=== PATIENT | male | born 1995 | race Caucasian/White ===

== ENCOUNTER 2016-11-16 11:46 | Day surgery (SDC) | payer BC ==
[2016-11-07 15:48] VITALS: BMI 23.0
[~2016-11-16] VITALS: Ht 180.3 cm; Wt 75.0 kg
[~2016-11-16 11:46] MED LIST: AMPH20TA2 PO; CEFAZOLIN 2000 MG/60 ML D5W IV SCH; FENTANYL CITRATE INJ 50 MCG/1 ML 2 ML VIAL ONE; IBUP-103 PO; LACTATED RINGER'S 1000ML 1,000 ML IV SCH; MIDAZOLAM HCL 1 MG/ML 2ML VIAL ONE
[2016-11-16 12:07] VITALS: BP 125/57; PULSE 57; TEMP 36.7; BMI 23.0
[2016-11-16 12:14] VITALS: Ht 180.3 cm; Wt 75.0 kg
--- NOTE | 2016-11-16 12:44 | History & Physical Bridge Note ---
H&P Re-Evaluation Bridge Note: I have examined the patient, reviewed the History & Physical and in the interval since the performance of the History & Physical I have noted the following changes of clinical significance: No changes noted
[2016-11-16] MEDS ORDERED: HYDR-5688 PO (12:45)
[2016-11-16] MEDS ORDERED: ONDANSETRON INJ 2 MG/ML 2 ML VIAL ONE (13:24)
[2016-11-16] MEDS ORDERED: PROPOFOL IV EMULSION 10 MG/ML 20 ML VIAL IV ONE (13:24)
[2016-11-16] MEDS ORDERED: LIDOCAINE HCL 2% 2 ML VIAL (20MG/ML) ONE (13:24)
[2016-11-16] MEDS ORDERED: KETOROLAC TROMETHAMINE 30 MG/ML VIAL ONE (13:24)
[2016-11-16] MEDS ORDERED: DEXAMETHASONE SOD INJ 4 MG/ML VIAL ONE (13:24)
[2016-11-16] MEDS ORDERED: FENTANYL CITRATE INJ 50 MCG/1 ML 2 ML VIAL ONE (13:26)
[2016-11-16] MEDS ORDERED: NEOSTIGMINE METHYLSULFATE 5 MG/5 ML SYR ONE (13:36)
[2016-11-16] MEDS ORDERED: ROCURONIUM BROMIDE 10 MG/ML 5 ML VIAL ONE (13:36)
[2016-11-16] MEDS ORDERED: GLYCOPYRROLATE INJ 0.2 MG/ML VIAL ONE (13:36)
[2016-11-16] MEDS ORDERED: ONDANSETRON INJ 2 MG/ML 2 ML VIAL IV PRN ×2 (14:00→14:30)
[2016-11-16] MEDS ORDERED: HYDROmorphone INJ 1 MG/ML SYR IV PRN (14:00)
[2016-11-16] MEDS ORDERED: EpHEDrine SULFATE INJ 50 MG/ML AMP IV PRN (14:00)
[2016-11-16] MEDS ORDERED: ATROPINE SULFATE 0.1 MG/ML 5ML SYR IV PRN (14:00)
[2016-11-16] MEDS ORDERED: BUPIVACAINE/EPINEPHRINE 0.5% MPF 1:200,000 30 ML VIAL INJ ONE (14:06)
--- NOTE | 2016-11-16 14:25 | [facility] Operative Report ---
Operative Report Operative Date Nov 16, 2016. Pre-Operative Diagnosis Left Inguinal Hernia Post-Operative Diagnosis large left inguinal hernia with omental incarceration Procedure(s) Performed open LIH repair with mesh Surgeon Dr Yao Resendiz Country Manager Surgeon(s) Nima Villalta PAC Estimated Blood Loss 5ml Findings large indirect inguinal hernia with omental incarceration Specimens none Complication(s) None Disposition Recovery Room / PACU I attest to the content of the Intraoperative Record and any orders documented therein. Any exceptions are noted below.
[2016-11-16] MEDS ORDERED: KETOROLAC TROMETHAMINE 30 MG/ML VIAL IV. PRN (14:30)
[2016-11-16] MEDS ORDERED: MoRPHine SULFATE 2 MG/ML CARP IV PRN (14:30)
[2016-11-16] MEDS ORDERED: IBUPROFEN 600 MG TAB PO PRN (14:30)
[2016-11-16] MEDS ORDERED: MoRPHine SULFATE 4 MG/ML 1 ML CARP\\VIAL IV PRN (14:30)
[2016-11-16] MEDS ORDERED: HYDROCODONE/ACETAMOPHEN 5/325MG TAB PO PRN ×2 (14:30)
[2016-11-16] MEDS: FENTANYL CITRATE INJ 50 MCG/1 ML 2 ML VIAL IV PRN ×2 (14:37→14:41)
[2016-11-16 15:05] VITALS: BP 141/67; PULSE 61; TEMP 36.7; O2SAT 100
--- NOTE | 2016-11-16 15:07 | Anesthesiology Progress Note ---
Anesthesia Post Op Note Date & Time Nov 16, 2016 at 15:06 Vital Signs Pain Intensity: 2 Vital Signs Past 12 Hours Date Time Temp Pulse Resp B/P Pulse Ox O2 Delivery O2 Flow Rate FiO2 11/16/16 14:58 36.8 136/85 11/16/16 14:57 70 16 11/16/16 14:57 72 16 100 11/16/16 14:53 143/71 11/16/16 14:52 60 10 100 11/16/16 14:52 62 10 11/16/16 14:48 148/84 11/16/16 14:47 67 18 98 11/16/16 14:47 64 18 11/16/16 14:43 137/88 11/16/16 14:42 64 16 11/16/16 14:42 64 16 100 11/16/16 14:38 153/83 11/16/16 14:37 70 17 11/16/16 14:37 70 17 100 11/16/16 14:33 139/81 11/16/16 14:32 84 17 11/16/16 14:32 85 17 100 11/16/16 14:28 130/61 11/16/16 14:27 61 9 11/16/16 14:27 61 9 100 11/16/16 14:23 127/65 11/16/16 14:22 58 15 11/16/16 14:22 59 15 100 11/16/16 14:18 123/57 11/16/16 14:17 60 17 99 11/16/16 14:17 60 17 11/16/16 14:14 117/56 11/16/16 14:12 36.6 59 14 117/56 99 10 11/16/16 12:14 Room Air 11/16/16 12:07 36.7 57 16 125/57 Notes Mental Status: alert / awake / arousable, participated in evaluation Pt Amnestic to Procedure: Yes Nausea / Vomiting: adequately controlled Pain: adequately controlled Airway Patency, RR, SpO2: stable & adequate BP & HR: stable & adequate Hydration State: stable & adequate Anesthetic Complications: no major complications apparent
[2016-11-16 15:35] VITALS: BP 132/66; PULSE 63; TEMP 36.8; O2SAT 97
[2016-11-16] MEDS ORDERED: SODIUM CHLORIDE 0.9% 1000ML 1,000 ML IV SCH (16:00)
[2016-11-16 16:05] VITALS: BP 135/62; PULSE 66; TEMP 36.6; O2SAT 97
--- NOTE | 2016-11-16 16:44 | OPERATIVE REPORT ---
DATE OF OPERATION: 11/16/2016 PREOPERATIVE DIAGNOSIS: Left inguinal hernia. POSTOPERATIVE DIAGNOSIS: Large indirect left inguinal hernia with omental incarceration. PROCEDURE: Open left inguinal hernia repair with mesh. SURGEON: Dr. Resendiz. ELEMENTARY SECRETARY: Octavio Villalta PA-C. ESTIMATED BLOOD LOSS: 5 mL. COMPLICATIONS: No immediate. ANESTHESIA: General laryngeal mask airway. OPERATIVE NOTE: After informed consent was obtained, the patient taken to the operating suite and placed in the supine position. After placement of laryngeal mask airway the lower groin area was shaved and sterilely prepped and draped in usual fashion. We began with an inguinal incision with a 15-blade scalpel. This was carried down through the soft tissue using electrocautery. The external oblique aponeurosis was skeletonized and a new blade was used to open it. Metzenbaum scissors was then used to extend this opening through the external ring as well as for several centimeters proximally. Once in the inguinal canal, there was a large amount contents making identification of the structures somewhat difficult. I was able to take the cord and cord structures off of the pubic bone and placed a Lucille around them. As we tried to identify the hernia sac we actually opened the hernia sac and found an extremely large amount of omentum incarcerated within it. This is what was making identification of the anatomy difficult. We were able to pull all the omentum out of the scrotum. It was healthy with a good blood supply. Surprisingly we were able to readily dunk this back into the abdominal cavity without difficulty. We then bluntly took down the rest of the sac off the cord and cord structures. We put a purse string around it using 2-0 Vicryl and then dunked it back into the abdominal cavity as well. There was no direct hernia. The cord looked healthy. We irrigated the wound. I then used a piece of polypropylene mesh as an onlay. It was secured distally to Markus's ligament laterally along the shelving portion of Poupart's ligament and medially along the midline abdominal musculature. The "arms" were wrapped around behind the cord and cord structures and again secured to underlying muscle. The mesh lay tension free and was not impinging on the cord. We did thoroughly irrigate the wound a final time. There was adequate hemostasis. We injected some Marcaine around the edges of the mesh for postoperative analgesia. We then closed the external oblique aponeurosis with 2-0 Vicryl in a running fashion. Soft tissue was irrigated and closed using 3-0 Vicryl and 4-0 Monocryl. Some additional Marcaine was injected around the skin and skin glue used as a dressing. The patient was awakened, extubated, and transferred to recovery in stable condition. I attest to the content of the Intraoperative Record and any orders documented therein. Any exceptio ns are noted below.
== END 2016-11-16 16:15 | disposition home or self-care (01) ==
LOC: C.ACU 11:46
PROVIDERS: ATTEND Surgery
DX: K40.90 Unilateral inguinal hernia, without obstruction or gangrene, not specified as recurrent (principal); F90.9 Attention-deficit hyperactivity disorder, unspecified type